=== PATIENT | female | born 2000 | race Hispanic/Latino ===

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

== ENCOUNTER 2018-01-02 15:29 | Emergency (ER) | payer MEDICARE, OTHER ==
[~2018-01-02] VITALS: Ht 154.9 cm; Wt 67.1 kg
--- OUTSIDE RECORDS SUMMARY | 2018-01-02 15:32 | XMS REPORT ---
Author Author [facility] Address Unknown Phone Unavailable Care Team Providers Care Process Technician Name Role Phone HERLINDA HENSON Unavailable Unavailable Problems This patient has no known problems. Allergies, Adverse Reactions, Alerts This patient has no known allergies or adverse reactions. Medications This patient has no known medications. Results Test Description Test Time Test Comments Text Results Atomic Results Result Comments CT ABDOMEN/PELVIS W [place] [address] Patient Name: KAREY SIDHU MR #: [id number] : 2000 Age/Sex: 16/F Req # : [id number] Adm Physician: Ordered by: HERLINDA HENSON MD Report # : [id number] Location: ER Room/Bed: Procedure: [id number] -[id number] CT/CT ABDOMEN/PELVIS W Exam Date: Exam Time: REPORT STATUS: Signed EXAM: CT ABDOMEN AND PELVIS with IV CONTRAST DATE: 09/12/2017 10:54 PM Time stamp on Exam: 0038 hours INDICATION: Pelvic pain, painful urination COMPARISON: None TECHNIQUE: The abdomen and pelvis were scanned using a multidetector helical scanner. Coronal and sagittal reformations were obtained. Routine protocol performed. IV Contrast : 100 cc Isovue-370 Oral Contrast: Water CTDIvol has been reviewed. It is below the limits set by the Radiation Protocol Committee (RPC). FINDINGS : LOWER THORAX: No consolidations LIVER: No masses BILIARY: The gallbladder is unremarkable. No ductal dilation. SPLEEN: No masses PANCREAS: No masses ADRENALS: No nodules KIDNEYS: Symmetric perfusion. No enhancing masses. No hydronephrosis. GI TRACT: No distention, wall thickening or evidence of obstruction. Normal appendix. VESSELS: Unremarkable PERITONEUM/RETROPERITONEUM: No free air or fluid LYMPH NODES: No lymphadenopathy REPRODUCTIVE ORGANS: Unremarkable BLADDER: Unremarkable SOFT TISSUES: Unremarkable BONES: No suspicious bone lesions. IMPRESSION: Normal CT of the abdomen and pelvis. Signed by : Dr. Armida Wilkes M.D. on 09/13/2017 12:58 AM Dictated By: ARMIDA WILKES MD Transcribed By: KRISH on 09/13/1757 COPY TO: HERLINDA HENSON MD
--- OUTSIDE RECORDS SUMMARY | 2018-01-02 15:32 | XMS REPORT | Clinical Summary ---
Author Author [facility] [employer] [facility] [employer] Address Unknown Phone Unavailable Care Team Providers Care Insurance Follow Up Specialist Name Role Phone Beto Colon MD PCP Allergies No Known Allergies Current Medications Prescription Sig. Disp. Refills Start End Date Status Date Take 1 tablet by mouth Active vit,[id number] 29 daily. mg iron- 1 mg tablet per tablet ferrous sulfate (SLOW FE) Take 1 tablet by mouth Active 140 mg (45 mg iron) daily with breakfast. tablet extended release Active Problems Currently Estimated Date of Delivery Comments Yes 06/12/2017 Based on Patient Reported No additional problems on file Encounters Date Type Specialty Care Team Description 04/06/2017 [facility] Obstetrics and Gynecology Jermaine Guthrie MD Encounter 04/03/2017 [facility] Obstetrics and Gynecology Jermaine Guthrie MD Encounter after 01/01/2017 Family History Medical History Relation Name Comments Diabetes Maternal Grandmother Relation Name Status Comments Maternal Grandmother Social History Tobacco Use Types Packs/Day Years Used Date Former Smoker Cigarettes Quit: 09/03/2016 Alcohol Use Drinks/Week oz/Week Comments No Currently Estimated Date of Delivery Comments Yes 06/12/2017 Based on Patient Reported Sex Assigned at Date Recorded Not on file Last Filed Vital Signs Vital Sign Reading Time Taken Blood Pressure 109/55 04/03/2017 10:32 AM CDT Pulse 93 04/03/2017 10:32 AM CDT Temperature 36.4 C (97.6 F) 04/06/2017 7:09 AM CDT Respiratory Rate 20 04/06/2017 7:09 AM CDT Oxygen Saturation - - Inhaled Oxygen - - Concentration Weight 68.9 kg (152 lb) 04/03/2017 10:32 AM CDT Height 154.9 cm (5' 1") 04/06/2017 7:09 AM CDT Body Mass Index 28.72 04/03/2017 10:32 AM CDT Plan of Treatment Not on file Results * Urinalysis screen and microscopy, with reflex to culture (04/06/2017 7:05 AM) Only the most recent of 2 results within the time period is included. Component Value Ref Range Specimen site Clean catch Color, UA Yellow Appearance, UA Hazy Specific gravity, UA 1.016 1.001 - 1.035 pH, UA 6.0 5.0 - 8.5 Protein, UA 1+ (A) Negative Glucose, UA 1+ (A) Negative Ketones, UA Negative Negative Bilirubin, UA Negative Negative Blood, UA Negative Negative Nitrite, UA Negative Negative Urobilinogen, UA <2.0 <2.0 Leukocyte esterase, UA Negative Negative Epithelial cells, UA 5 /HPF WBC, UA 9 (H) 0 - 4 /HPF RBC, UA 1 0 - 2 /HPF Bacteria, UA Few None seen Yeast, UA None seen Yeast with pseudohyphae, None seen UA Specimen Performing Laboratory Urine [facility] DEPARTMENT OF PATHOLOGY AND GENOMIC MEDICINE [address] [place] [address] * Gram stain (04/06/2017 7:05 AM) Only the most recent of 2 results within the time period is included. Component Value Ref Range Gram stain result No WBC's Many Gram positive rods Comment: Specimen Information Specimen Source: Urine Specimen Site: See UA Specimen Performing Laboratory Urine [facility] DEPARTMENT OF PATHOLOGY AND GENOMIC MEDICINE [address] [place], [place] [id number] * Urine culture (04/06/2017 7:05 AM) Only the most recent of 2 results within the time period is included. Component Value Ref Range Urine culture isolate Mixed Gram positive rosita 10-1 cfu/ml (A) Comment: Specimen Information Specimen Source: Urine Specimen Site: See UA Urine culture isolate Gram negative rods <10-1 cfu/ml (A) Specimen Performing Laboratory Urine [facility] DEPARTMENT OF PATHOLOGY AND GENOMIC MEDICINE [address] [place] [phone] after 01/01/2017 Insurance Payer Benefit Subscriber ID Type Phone Address Plan / Group [facility] xxxxxxxxx HMO PLAN [facility] DIPESH AZUL [id number]
[2018-01-02] MEDS ORDERED: ONDANSETRON HCL INJ 2 MG/ML VIAL IV STA (16:04)
[2018-01-02] MEDS ORDERED: SODIUM CHLORIDE 0.9% 1000ML 1,000 ML IV STA (16:04)
[2018-01-02 16:24] LABS: BASOPHILS % 0.3 % (0.0-1.0); EOSINOPHILS # (AUTO) 0.1 (0.0-0.4); EOSINOPHILS % 1.4 % (0.0-6.0); HEMATOCRIT 31.6 % (34.2-44.1); HEMOGLOBIN 9.8 g/dL (12.0-16.0); LYMPHOCYTES # (AUTO) 1.3 (1.0-3.2); LYMPHOCYTES % 17.2 % (18.0-39.1); MEAN CORPUSCULAR HEMOGLOBIN 22.8 pg (28-32); MEAN CORPUSCULAR VOLUME 73.7 fL (81-99); MONOCYTES # (AUTO) 0.4 (0.2-0.8); MONOCYTES % 5.1 % (4.4-11.3); NEUTROPHILS # (AUTO) 5.8 (2.1-6.9); NEUTROPHILS % 75.7 % (38.7-80.0); PLATELET COUNT 353 x10e3/uL (140-360); RED BLOOD COUNT 4.29 x10e6/uL (3.6-5.1)
[2018-01-02 16:28] LABS: BILIRUBIN,URINE NEGATIVE (NEGATIVE); CLARITY,URINE SL CLOUDY (CLEAR); COLOR,URINE YELLOW (YELLOW); KETONES,URINE NEGATIVE (NEGATIVE); LEUKOCYTE ESTERASE ,URINE NEGATIVE (NEGATIVE); NITRITE,URINE NEGATIVE (NEGATIVE); PROTEIN,URINE DIPSTICK TRACE (NEGATIVE); URINE UROBILINOGEN 0.2 mg/dL (0.2 - 1)
[2018-01-02 16:40] LABS: ANION GAP 12.2 mmol/L (8-16); BLOOD UREA NITROGEN < 5 mg/dL (7-26); CALCIUM 9.2 mg/dL (8.4-10.2); CARBON DIOXIDE 23 mmol/L (22-29); CHLORIDE 104 mmol/L (98-107); CREATININE, SERUM 0.67 mg/dL (0.57-1.11); EST GLOMERULAR FILTRATION RATE > 60 ML/MIN (60-); GLUCOSE 119 mg/dL (74-118); POTASSIUM 3.2 mmol/L (3.5-5.1); SODIUM 136 mmol/L (136-145)
[2018-01-02 16:40] LABS: BACTERIA,URINE MANY /HPF; EPITHELIAL CELLS,URINE MODERATE /LPF
[2018-01-02 16:41] LABS: BUN/CREATININE RATIO 7 (6-25)
[2018-01-02] MEDS ORDERED: POTASSIUM CHLORIDE 20 MEQ TAB CR PO STA (17:13)
== END 2018-01-02 17:57 | disposition home or self-care (01) ==
LOC: ER 15:29
DX: O20.9 Hemorrhage in early pregnancy, unspecified (principal); D50.0 Iron deficiency anemia secondary to blood loss (chronic); E87.6 Hypokalemia; R11.2 Nausea with vomiting, unspecified; R19.7 Diarrhea, unspecified
CPT/HCPCS: 36415; 80048; 81001; 84702; 85025; 86850; 86900; 99283; J2405; J7030

== ENCOUNTER 2018-01-17 00:16 | Emergency (ER) | payer MEDICARE, OTHER ==
[~2018-01-17] VITALS: Ht 154.9 cm; Wt 67.1 kg
--- OUTSIDE RECORDS SUMMARY | 2018-01-17 00:18 | XMS REPORT | Clinical Summary ---
Author Author [employer] [facility] [employer] Address Unknown Phone Unavailable Care Team Providers Care Landscape Nurseryman Name Role Phone Beto Colon MD PCP Allergies No Known Allergies Current Medications Prescription Sig. Disp. Refills Start End Date Status Date Take 1 tablet by mouth Active vit,[id number] 29 daily. mg iron- 1 mg tablet per tablet ferrous sulfate (SLOW FE) Take 1 tablet by mouth Active 140 mg (45 mg iron) daily with breakfast. tablet extended release Active Problems Currently Estimated Date of Delivery Comments Yes 06/12/2017 Based on Patient Reported No additional problems on file Encounters Date Type Specialty Care Team Description 04/06/2017 [facility] Obstetrics and Gynecology Jermaine Guthrie MD Encounter 04/03/2017 [facility] Obstetrics and Gynecology Jermaine Guthrie MD Encounter after 01/16/2017 Family History Medical History Relation Name Comments [...] None seen UA Specimen Performing Laboratory Urine [facility] DEPARTMENT OF PATHOLOGY AND GENOMIC MEDICINE [address] [place] [address] * Gram stain (04/06/2017 7:05 AM) Only the most recent of 2 results within the time period is included. Component Value Ref Range Gram stain result No WBC's Many Gram positive rods Comment: Specimen Information Specimen Source: Urine Specimen Site: See UA Specimen Performing Laboratory Urine [facility] DEPARTMENT OF PATHOLOGY AND GENOMIC MEDICINE [address] [place], [place] [id number] * Urine culture (04/06/2017 7:05 AM) Only the most recent of 2 results within the time period is included. Component Value Ref Range Urine culture isolate Mixed Gram positive rosita 10-1 cfu/ml (A) Comment: Specimen Information Specimen Source: Urine Specimen Site: See UA Urine culture isolate Gram negative rods <10-1 cfu/ml (A) Specimen Performing Laboratory Urine [facility] DEPARTMENT OF PATHOLOGY AND GENOMIC MEDICINE [address] [place] [phone] after 01/16/2017 Insurance Payer Benefit Subscriber ID Type Phone Address Plan / Group [facility] xxxxxxxxx HMO PLAN [facility] DIPESH AZUL [id number]
--- OUTSIDE RECORDS SUMMARY | 2018-01-17 00:19 | XMS REPORT | Continuity of Care Document ---
Author Author [facility] Organization [facility] Address [address] [place] [address] Phone Unavailable Care Team Providers Care Health Careers Instructor Name Role Phone CAIT BOTELLO MD PCP Insurance Providers Guarantor Khadra Sidhu Address [address] [place] [address] Email [email or web address] [facility] Policy Number [id number] Subscriber's Name Khadra Sidhu Relationship 18 Self / Same As Patient Advance Directives Directive Response Recorded Date/Time Does the patient have an advance directive? No 06/25/16 10:29am If yes, is advance directive on file with [facility]? No 06/25/16 10:29am If not on file with [facility] will patient provide a copy? Yes 06/25/16 10:29am Do you have a Directive to Physician? No 01/02/18 4:36pm Do you have a Medical Power of Panel Machine Operator? No 01/02/18 4:36pm Do you have an out of hospital Do Not Resuscitate Order? No 01/02/18 4:36pm Do you have any special needs we should be aware of? NN 01/02/18 4:36pm Do you have a support person here with you today? Yes 01/02/18 4:36pm Did patient receive Notice of Privacy Practices? Yes 01/02/18 4:36pm Did patient receive patient rights and responsibilities? Yes 01/02/18 4:36pm Problems No problem information available. Medications No known medications. Social History Smoking Status Start Date Stop Date Never Smoker Hospital Discharge Instructions No hospital discharge instruction information available. Plan of Care Discharge Date 01/02/18 5:57pm Disposition HOME, SELF-CARE Condition at Discharge Stable Instructions/Education Provided Diarrhea - Adult Vomiting - Adult Forms Provided Work/School Excuse Prescriptions See Medication Section Referrals CAIT BOTELLO MD Address: [address] [place] [id number] Additional Instructions/Education Follow up to see Dr. Botello . Take over the counter Tylenol medication as needed for comfort. If prescribed medication as prescribed for nausea. discussed at the bedside, drink fluids, rest and return to the emergency department for any fever, shortness of breath, chest pain, abdominal pain, trouble handling oral secretions or any new concerns. Functional Status No functional status information available. Allergies, Adverse Reactions, Alerts Allergen Type Severity Reaction Status Last Updated No Known Drug Allergies Allergy Unknown Active 06/25/16 Immunizations No immunization information available. Vital Signs Acute Vital Signs Vital Response Date/Time Height 5 ft 1 in 01/02/2018 3:34pm Weight 148 lb 01/02/2018 3:34pm Body Mass Index 28.0 kg/m^2 01/02/2018 3:34pm Results Laboratory Results Test Name Result Units Flags Reference Collection Date/Time Result Date/ Time Comments Urine Mucus MODERATE H RARE 09/12/2017 8:18pm 09/12/2017 10:27pm Urine Test NEGATIVE NEGATIVE 09/12/2017 8:18pm 09/12/2017 10:21pm Influenza Virus Types A,B Antigen NEGATIVE NEGATIVE 09/12/2017 10: 50pm 09/13/2017 12:06am Total Bilirubin 0.5 mg/dL 0.2-1.2 09/12/2017 8:18pm 09/12/2017 10:38pm Aspartate Amino Transf (AST/SGOT) 31 IU/L 5-34 09/12/2017 8:18pm 2016 10:38pm Alanine Aminotransferase (ALT/SGPT) 35 IU/L 0-55 09/12/2017 8:18pm 10:38pm Total Protein 8.5 g/dL H 6.5-8.1 09/12/2017 8:18pm 09/12/2017 10:38pm Albumin 4.2 g/dL 3.5-5.0 09/12/2017 8:18pm 09/12/2017 10:38pm Globulin 4.3 g/dL H 2.3-3.5 09/12/2017 8:18pm 09/12/2017 10:38pm Albumin/Globulin Ratio 1.0 0.8-2.0 09/12/2017 8:18pm 09/12/2017 10: 38pm Alkaline Phosphatase 116 IU/L 40-150 09/12/2017 8:18pm 09/12/2017 10: 38pm White Blood Count 7.67 x10e3/uL 4.8-10.8 01/02/2018 3:45pm 01/02/2018 4 :27pm Red Blood Count 4.29 x10e6/uL 3.6-5.1 01/02/2018 3:45pm 01/02/2018 4: 27pm Hemoglobin 9.8 g/dL L 12.0-16.0 01/02/2018 3:45pm 01/02/2018 4:27pm Hematocrit 31.6 % L 34.2-44.1 01/02/2018 3:45pm 01/02/2018 4:27pm Mean Corpuscular Volume 73.7 fL L 81-99 01/02/2018 3:45pm 01/02/2018 4: 27pm Mean Corpuscular Hemoglobin 22.8 pg L 28-32 01/02/2018 3:45pm 2017 4:27pm Mean Corpuscular Hemoglobin Concent 31.0 g/dL 31-35 01/02/2018 3:45pm 01/02/2018 4:27pm Red Cell Distribution Width 17.0 % H 11.7-14.4 01/02/2018 3:45pm 2017 4:27pm Platelet Count 353 x10e3/uL 140-360 01/02/2018 3:45pm 01/02/2018 4: 27pm Neutrophils (%) (Auto) 75.7 % 38.7-80.0 01/02/2018 3:45pm 01/02/2018 4: 27pm Lymphocytes (%) (Auto) 17.2 % L 18.0-39.1 01/02/2018 3:45pm 01/02/2018 4 :27pm Monocytes (%) (Auto) 5.1 % 4.4-11.3 01/02/2018 3:45pm 01/02/2018 4: 27pm Eosinophils (%) (Auto) 1.4 % 0.0-6.0 01/02/2018 3:45pm 01/02/2018 4: 27pm Basophils (%) (Auto) 0.3 % 0.0-1.0 01/02/2018 3:45pm 01/02/2018 4:27pm IM GRANULOCYTES % 0.3 % 0.0-1.0 01/02/2018 3:45pm 01/02/2018 4:27pm Neutrophils # (Auto) 5.8 2.1-6.9 01/02/2018 3:45pm 01/02/2018 4:27pm Lymphocytes # (Auto) 1.3 1.0-3.2 01/02/2018 3:45pm 01/02/2018 4:27pm Monocytes # (Auto) 0.4 0.2-0.8 01/02/2018 3:45pm 01/02/2018 4:27pm Eosinophils # (Auto) 0.1 0.0-0.4 01/02/2018 3:45pm 01/02/2018 4:27pm Basophils # (Auto) 0.0 0.0-0.1 01/02/2018 3:45pm 01/02/2018 4:27pm Absolute Immature Granulocyte (auto 0.02 x10e3/uL 0-0.1 01/02/2018 3: 45pm 01/02/2018 4:27pm Urine Color YELLOW YELLOW 01/02/2018 3:42pm 01/02/2018 4:28pm Urine Clarity SL CLOUDY CLEAR 01/02/2018 3:42pm 01/02/2018 4:28pm Urine Specific [place] 1.030 H 1.010-1.025 01/02/2018 3:42pm 2017 4:28pm Urine pH 5 5 - 7 01/02/2018 3:42pm 01/02/2018 4:28pm Urine Leukocyte Esterase NEGATIVE NEGATIVE 01/02/2018 3:42pm 2017 4:28pm Urine Nitrite NEGATIVE NEGATIVE 01/02/2018 3:42pm 01/02/2018 4:28pm Urine Protein TRACE H NEGATIVE 01/02/2018 3:42pm 01/02/2018 4:28pm Urine Glucose (UA) NEGATIVE NEGATIVE 01/02/2018 3:42pm 01/02/2018 4: 28pm Urine Ketones NEGATIVE NEGATIVE 01/02/2018 3:42pm 01/02/2018 4:28pm Urine Urobilinogen 0.2 mg/dL 0.2 - 1 01/02/2018 3:42pm 01/02/2018 4: 28pm Urine Bilirubin NEGATIVE NEGATIVE 01/02/2018 3:42pm 01/02/2018 4: 28pm Urine Blood NEGATIVE NEGATIVE 01/02/2018 3:42pm 01/02/2018 4:28pm Urine WBC 6-10 /HPF H 0-5 01/02/2018 3:42pm 01/02/2018 4:40pm Urine RBC NONE /HPF 0-5 01/02/2018 3:42pm 01/02/2018 4:40pm Urine Bacteria MANY /HPF H NONE 01/02/2018 3:42pm 01/02/2018 4:40pm Urine Epithelial Cells MODERATE /LPF NONE 01/02/2018 3:42pm 01/02/2018 4:40pm Sodium Level 136 mmol/L 136-145 01/02/2018 3:45pm 01/02/2018 4:41pm Potassium Level 3.2 mmol/L L 3.5-5.1 01/02/2018 3:45pm 01/02/2018 4: 41pm Chloride Level 104 mmol/L 98-107 01/02/2018 3:45pm 01/02/2018 4:41pm Carbon Dioxide Level 23 mmol/L 22-29 01/02/2018 3:45pm 01/02/2018 4: 41pm Anion Gap 12.2 mmol/L 8-16 01/02/2018 3:45pm 01/02/2018 4:41pm Blood Urea Nitrogen < 5 mg/dL L 7-01/02/2018 3:45pm 01/02/2018 4: 41pm Creatinine 0.67 mg/dL 0.57-1.11 01/02/2018 3:45pm 01/02/2018 4:41pm BUN/Creatinine Ratio 7 6-25 01/02/2018 3:45pm 01/02/2018 4:41pm Estimat Glomerular Filtration Rate > 60 ML/MIN 60- 01/02/2018 3:45pm 4:41pm Ranges were taken from the National Kidney Disease Education Program and the National Kid[employer] literature. Reference ranges: 60 or greater: Normal 16-59 (for 3 consecutive months): Chronic kidney disease 15 or less: Kidney failure Glucose Level 119 mg/dL H 74-118 01/02/2018 3:45pm 01/02/2018 4:41pm Calcium Level 9.2 mg/dL 8.4-10.2 01/02/2018 3:45pm 01/02/2018 4:41pm Human Chorionic Gonadotropin, Quant [id number] mIU/mL H 0-10 01/02/2018 3: 45pm 01/02/2018 5:04pm Procedures Procedure Status Date Provider(s) Computed tomography of abdomen and pelvis with contrast Active 09/12/17 HERLINDA HENSON MD Encounters Encounter Location Arrival/Admit Date Discharge/Depart Date Attending Provider Departed Emergency Room [facility] 01/02/18 3:29pm 5:57pm MERCEDES ZHONG MD Departed Emergency Room [facility] 09/12/17 7:48pm 1:20am HERLINDA HENSON MD
[2018-01-17 01:47] LABS: BASOPHILS % 0.1 % (0.0-1.0); HEMATOCRIT 33.6 % (34.2-44.1); HEMOGLOBIN 10.4 g/dL (12.0-16.0); LYMPHOCYTES # (AUTO) 0.4 (1.0-3.2); LYMPHOCYTES % 4.5 % (18.0-39.1); MEAN CORPUSCULAR HEMOGLOBIN 22.8 pg (28-32); MEAN CORPUSCULAR VOLUME 73.7 fL (81-99); MONOCYTES # (AUTO) 0.3 (0.2-0.8); MONOCYTES % 3.2 % (4.4-11.3); NEUTROPHILS # (AUTO) 9.1 (2.1-6.9); NEUTROPHILS % 91.8 % (38.7-80.0); PLATELET COUNT 350 x10e3/uL (140-360); RED BLOOD COUNT 4.56 x10e6/uL (3.6-5.1); RED CELL DISTRIBUTION WIDTH 16.3 % (11.7-14.4)
[2018-01-17 02:11] LABS: ALANINE AMINOTRANSFERASE 14 IU/L (0-55); ALBUMIN 3.6 g/dL (3.5-5.0); ALBUMIN/GLOBULIN RATIO 0.8 (0.8-2.0); ALKALINE PHOSPHATASE 112 IU/L (40-150); ANION GAP 17.6 mmol/L (8-16); BLOOD UREA NITROGEN 8 mg/dL (7-26); BUN/CREATININE RATIO 12 (6-25); CALCIUM 9.5 mg/dL (8.4-10.2); CARBON DIOXIDE 18 mmol/L (22-29); CHLORIDE 103 mmol/L (98-107); CREATININE, SERUM 0.66 mg/dL (0.57-1.11); EST GLOMERULAR FILTRATION RATE > 60 ML/MIN (60-); GLUCOSE 93 mg/dL (74-118); POTASSIUM 3.6 mmol/L (3.5-5.1); SODIUM 135 mmol/L (136-145)
[2018-01-17] MEDS: METOCLOPRAMIDE HCL 10 MG/2ML VIAL IV ONE (02:52)
[2018-01-17] MEDS: SODIUM CHLORIDE 0.9% 1000ML 1,000 ML IV STA ×2 (02:52→04:36)
[2018-01-17] MEDS: DIPHENHYDRAMINE HCL INJ 50 MG/ML VIAL IV ONE (02:52)
[2018-01-17 03:00] LABS: HCG,QUANTITATIVE 87907.32 mIU/mL (0-10)
[2018-01-17] MEDS ORDERED: SODIUM CHLORIDE 0.9% 1000ML 1,000 ML ONE (04:37)
[2018-01-17] MEDS ORDERED: SODIUM CHLORIDE 0.9% 1000ML 1,000 ML IV STA (04:45)
[2018-01-17 05:05] LABS: CLARITY,URINE CLEAR (CLEAR); COLOR,URINE YELLOW (YELLOW); KETONES,URINE 2+ (NEGATIVE); LEUKOCYTE ESTERASE ,URINE NEGATIVE (NEGATIVE); NITRITE,URINE NEGATIVE (NEGATIVE); PROTEIN,URINE DIPSTICK 1+ (NEGATIVE)
[2018-01-17 05:06] LABS: BILIRUBIN,URINE NEGATIVE (NEGATIVE); URINE UROBILINOGEN 0.2 mg/dL (0.2 - 1)
[2018-01-17 05:27] LABS: BACTERIA,URINE RARE /HPF; EPITHELIAL CELLS,URINE FEW /LPF; RBC,URINE 0-5 /HPF (0-5); WBC,URINE (MAN) 0-5 /HPF (0-5)
[2018-01-17 06:44] VITALS: BP 104/58
== END 2018-01-17 06:59 | disposition home or self-care (01) ==
LOC: ER 00:16
DX: R11.2 Nausea with vomiting, unspecified (principal); R19.7 Diarrhea, unspecified; E86.0 Dehydration; Z33.1 Pregnant state, incidental
CPT/HCPCS: 36415; 80053; 81001; 84702; 85025; 86900; 99283; J1200; J2765; J7030